=== PATIENT | female | born 1945 | race Caucasian/White ===

== ENCOUNTER → 2018-10-15 | Outpatient (CLI) | payer MEDICARE, BC, SELFPAY ==
[2018-10-15 10:28] LABS: Anion Gap 6 (5-15); BUN 16 mg/dL (7-18); BUN/Creat Ratio 20.2 RATIO (10-20); Calcium,Total 9.1 mg/dL (8.5-10.1); Chloride 110 mmol/L (98-107); Cholesterol 164 mg/dL (200); Creatinine, Serum 0.79 mg/dL (0.55-1.02); EST Glomerular Filtration Rate 76 mL/min (>60); Est Glom Filt Rate - Afr Amer 92 mL/min (>60); Glucose 97 mg/dL (74-106); High Density Lipoprotein 54 mg/dL; Potassium 4.2 mmol/L (3.5-5.1); Sodium Level 140 mmol/L (136-145); Thyroid Stim Hormone (TSH) 6.61 uIU/mL (0.358-3.74); Triglycerides 103 mg/dL; Very Low Density Lipoprotein 21 mg/dL (5-40)
== END | disposition home or self-care (01) ==
LOC: MFPLAB 08:46
PROVIDERS: Nurse Practitioner Family; Family Provider Family Medicine; PCP Family Medicine; Visit Provider Family Medicine
DX: Z00.00 Encounter for general adult medical examination without abnormal findings (principal); E03.9 Hypothyroidism, unspecified
CPT/HCPCS: 36415; 80048; 80061; 84443

== ENCOUNTER → 2018-11-02 | Outpatient (CLI) | payer MEDICARE, BC, SELFPAY ==
[2014-08-06 09:05] VITALS: BMI 28.2
--- NOTE | 2018-11-02 08:05 | BI_ITS ---
MAMMOGRAPHY - BILATERAL SCREENING REASON FOR EXAM: Female, 73 years old. Routine annual screening examination. PERTINENT HISTORY: Non-contributory. TECHNIQUE: Digital bilateral breast virgie (3D mammographic acquisition) in the CC and MLO projections. 2-D mediolateral oblique (MLO) and craniocaudad (CC) views of both breasts were obtained. CAD: Full Field Digital Mammography with Computer Added Detection was performed. COMPARISON: Comparison is made with prior outside examination dated August 22, 2015. FINDINGS: Breast Composition: There are scattered areas of fibroglandular density. There are no dominant masses or suspicious calcifications. No other significant abnormalities are identified. There has been no significant change since the prior study. BI/SCREEN MAMM (CAD) W/VIRGIE BILAT IMPRESSION: Stable bilateral screening mammogram. Yearly follow-up mammogram recommended. (A) ASSESSMENT CATEGORY: BIRADS Category 1: Negative. A letter regarding these results will be sent to the patient by the facility within 30 days. Approximately 10% of breast cancers are not detected by mammography. A normal mammogram should not delay biopsy of a clinically suspicious abnormality. [id number] Electronically Signed: Jose Carlos Bee, at 8:15 EDT , Service support ,
== END | disposition home or self-care (01) ==
LOC: OPBI 08:01
PROVIDERS: Family Provider Family Medicine; PCP Family Medicine; Referring Provider Nurse Practitioner Family; Visit Provider Nurse Practitioner Family
DX: Z12.31 Encounter for screening mammogram for malignant neoplasm of breast (principal)
CPT/HCPCS: 77063; 77067

== ENCOUNTER → 2018-12-23 09:59 | Outpatient (CLI) | payer MEDICARE, BC, SELFPAY ==
[2014-08-06 09:05] VITALS: BMI 28.2
[2018-12-23 13:02] LABS: Thyroid Stim Hormone (TSH) 2.54 uIU/mL (0.358-3.74)
== END ==
PROVIDERS: Family Provider Family Medicine; PCP Family Medicine; Referring Provider Family Medicine; Visit Provider Family Medicine
DX: E03.9 Hypothyroidism, unspecified (principal)
CPT/HCPCS: 36415; 84443

== ENCOUNTER → 2019-01-01 14:55 | Outpatient (CLI) | payer MEDICARE, BC, SELFPAY ==
[2014-08-06 09:05] VITALS: BMI 28.2
--- NOTE | 2019-01-01 | IMM_PTH ---
PATIENT: AISHA COTTER LOC: [facility] U#:[id number] AGE/SX: 79/F ROOM: RE01/01/[address]: Dr. Homero Mckenna MD : 1945 BED: DIS: SPEC #: [id number] RECD: 01/04/19 12:11 STATUS: YULIA CLAUDIA #: [id number] JENNIFER: 01/01/19 00:[address]: Homero Mckenna DEPT: IMMUNOHISTOCHEMISTRY RECD BY: Shyla Jaimes Tissues: C - Skin of arm Procedures: DESMIN (add) MART1 (add) Vimentin (add) Smooth Muscle Actin S-100 (add) PHYSICIAN & [place] [id number] SPECIMEN INFORMATION: Tissue Source: C - Right arm lesion, excision Clinical Info: Suspicious lesion Specimen Number: [id number] CPT code: 00658, 60867 x4 METHODOLOGY: Deparaffinized sections of prefer/formalin-fixed tissue or PAP/DQ stained slides are incubated with monoclonal/polyclonal antibodies/oligonucleotide probes. Localization is made via biotin free immunoperoxidase method. Appropriate controls are performed and reacted as expected. Results on target cell population are indicated in the following table: RESULTS: ANTIBODY / CLONE RESULT Block C Actin (1A4) negative Desmin (CE-R-11) negative Vimentin (V9) positive S-100 (4C4.9) positive MART-1 (A-103) negative These tests were developed and their performance characteristics determined by [facility]. They may not have been cleared or approved by the U.S. Food and Drug Administration. The FDA has determined that such clearance or approval is not necessary. The above immunohistochemical/dualISH markers are ordered and reviewed by the pathologist. INTERPRETATION: Right arm lesion, excision: Consistent with neurofibroma. LIVIA:libra 01/04/19
--- NOTE | 2019-01-01 11:50 | LES_PTH ---
PATIENT: AISHA COTTER LOC: [facility] U#:[id number] AGE/SX: 79/F ROOM: RE01/01/[address]: Dr. Homero Mckenna MD : 1945 BED: DIS: SPEC #: [id number] RECD: 01/01/19 14:02 STATUS: YULIA CLAUDIA #: [id number] JENNIFER: 01/01/19 11:[address]: Homero Mckenna DEPT: SURGICAL PATHOLOGY RECD BY: Shyla Jaimes Tissues: A - Skin of leg, NOS B - Skin of neck, NOS C - Skin of arm Procedures: Surgery Specimen Level IV HEADER OPERATION: Skin excision left leg; skin excision neck, front; skin excision of right arm PRE-OP DIAGNOSIS: Suspicious lesions TISSUE SUBMITTED: A - Left leg lesion, B - Neck lesion, C - Right arm lesion MICROSCOPIC DIAGNOSIS A. Left leg lesion, biopsy: Inflamed verrucal keratosis with mild actinic changes. B. Neck lesion, biopsy: Seborrheic keratosis. C. Right arm lesion, biopsy: Consistent with neurofibroma. Solar elastosis. See comment. SJ:libra 01/04/19 COMMENT C. Immunohistochemistry ([id number]) supports the above diagnosis. MICROSCOPIC DESCRIPTION Slides are reviewed. GROSS DESCRIPTION A - Received is one container labeled with the patient's name and not further designated. The specimen consists of a shave biopsy of neal-white skin measuring 0.7 x 0.7 x 0.2 cm. The specimen is inked and submitted entirely in one cassette. It will be sectioned at the time of embedding. B - Received is one container labeled with the patient's name and not further designated. The specimen consists of a shave biopsy of neal-white skin measuring 0.7 x 0.7 x 0.2 cm. The specimen is inked and submitted entirely in one cassette. It will be sectioned at the time of embedding. C - Received is one container labeled with the patient's name and not further designated. The specimen consists of a piece of neal-white skin ellipse measuring 1.2 x 0.7 cm and up to 0.5 cm in thickness. The specimen is inked, serially sectioned and submitted entirely in one cassette. / LIVIA:libra 01/01/19 TC:1 CPT: 39522 x3
== END ==
LOC: LAB 15:24 → LABSPEC 15:27
PROVIDERS: Family Provider Family Medicine; PCP Family Medicine; Referring Provider Family Medicine; Visit Provider Family Medicine
DX: L82.0 Inflamed seborrheic keratosis (principal); L57.8 Other skin changes due to chronic exposure to nonionizing radiation
CPT/HCPCS: 88305; 88341; 88342

== ENCOUNTER → 2019-04-12 09:53 | Outpatient (CLI) | payer MEDICARE, BC, SELFPAY ==
[2014-08-06 09:05] VITALS: BMI 28.2
[2019-04-12 13:02] LABS: Anion Gap 3 (5-15); BUN 14 mg/dL (7-18); BUN/Creat Ratio 18.1 RATIO (10-20); Calcium,Total 8.8 mg/dL (8.5-10.1); Chloride 111 mmol/L (98-107); Cholesterol 174 mg/dL (200); Creatinine, Serum 0.77 mg/dL (0.55-1.02); EST Glomerular Filtration Rate 78 mL/min (>60); Est Glom Filt Rate - Afr Amer 94 mL/min (>60); Free T3 2.4 pg/mL (2.18-3.98); Glucose 89 mg/dL (74-106); High Density Lipoprotein 48 mg/dL; Potassium 4.1 mmol/L (3.5-5.1); Sodium Level 140 mmol/L (136-145); T4 Total, Thyroxin 13.1 ug/dL (4.8-13.9); Thyroid Stim Hormone (TSH) 2.36 uIU/mL (0.358-3.74); Triglycerides 167 mg/dL; Very Low Density Lipoprotein 33 mg/dL (5-40)
== END ==
PROVIDERS: Family Provider Family Medicine; PCP Family Medicine; Visit Provider Family Medicine
DX: I10 Essential (primary) hypertension (principal); E03.9 Hypothyroidism, unspecified
CPT/HCPCS: 36415; 80048; 80061; 84436; 84443; 84481

== ENCOUNTER → 2019-05-27 09:59 | Outpatient (CLI) | payer MEDICARE, BC, SELFPAY ==
[2014-08-06 09:05] VITALS: BMI 28.2
[2019-05-27 13:03] LABS: Anion Gap 6 (5-15); BUN 10 mg/dL (7-18); BUN/Creat Ratio 12.2 RATIO (10-20); Calcium,Total 8.9 mg/dL (8.5-10.1); Chloride 109 mmol/L (98-107); Cholesterol 143 mg/dL (200); Creatinine, Serum 0.82 mg/dL (0.55-1.02); EST Glomerular Filtration Rate 73 mL/min (>60); Est Glom Filt Rate - Afr Amer 88 mL/min (>60); Free T3 2.2 pg/mL (2.18-3.98); Glucose 100 mg/dL (74-106); High Density Lipoprotein 50 mg/dL; Potassium 3.9 mmol/L (3.5-5.1); Sodium Level 139 mmol/L (136-145); T4 Total, Thyroxin 12.8 ug/dL (4.8-13.9); Thyroid Stim Hormone (TSH) 1.82 uIU/mL (0.358-3.74); Triglycerides 104 mg/dL; Very Low Density Lipoprotein 21 mg/dL (5-40)
== END ==
PROVIDERS: PCP Family Medicine; Referring Provider Family Medicine; Visit Provider Family Medicine
DX: E03.9 Hypothyroidism, unspecified (principal); I10 Essential (primary) hypertension
CPT/HCPCS: 36415; 80048; 80061; 84436; 84443; 84481

== ENCOUNTER → 2020-05-25 08:35 | Outpatient (CLI) | payer MEDICARE, BC, SELFPAY ==
[2014-08-06 09:05] VITALS: BMI 28.2
[2020-05-25 10:47] LABS: Anion Gap 5 (5-15); BUN 12 mg/dL (7-18); Chloride 109 mmol/L (98-107); Cholesterol 179 mg/dL (200); Creatinine, Serum 0.92 mg/dL (0.55-1.02); EST Glomerular Filtration Rate 63 mL/min (>60); Est Glom Filt Rate - Afr Amer 77 mL/min (>60); Free T3 1.4 pg/mL (2.18-3.98); Glucose 93 mg/dL (74-106); High Density Lipoprotein 59 mg/dL; Sodium Level 140 mmol/L (136-145); T4 Free Direct 0.44 ng/dL (0.76-1.46); Triglycerides 136 mg/dL; Very Low Density Lipoprotein 27 mg/dL (5-40)
== END ==
PROVIDERS: PCP Family Medicine; Referring Provider Family Medicine; Visit Provider Family Medicine
DX: I10 Essential (primary) hypertension (principal); E03.9 Hypothyroidism, unspecified
CPT/HCPCS: 36415; 80048; 80061; 84439; 84443; 84481

== ENCOUNTER 2020-06-13 08:55 | Outpatient (RCR) | payer MEDICARE, SELFPAY ==
[2014-08-06 09:05] VITALS: BMI 28.2
[2020-06-13] MEDS: COVID-19 VACC, MRNA(PFIZER)/PF 30 MCG/0.3 ML SYRINGE IM (07:54)
[2020-07-04] MEDS: COVID-19 VACC, MRNA(PFIZER)/PF 30 MCG/0.3 ML SYRINGE IM (07:47)
== END 2020-09-12 23:59 ==
LOC: IMMUN 08:55
PROVIDERS: PCP Family Medicine; Visit Provider Family Medicine
DX: Z23 Encounter for immunization (principal)
CPT/HCPCS: 0001A; 0002A; 91300

== ENCOUNTER → 2020-09-22 13:37 | Outpatient (CLI) | payer MEDICARE, BC, SELFPAY ==
--- NOTE | 2020-09-22 14:18 | ART_ITS ---
Reason For Study: CLAUDICATION Procedure A bilateral lower extremity continuous wave Doppler with analog waveform analysis,segmental pressures,and ankle brachial indexes without exercise. Left Segmental Pressures Left brachial= 146mmHg. Left posterior tibial artery = 176mmHg. Left dorsalis pedis artery = 176mmHg. Left digit = 121 mmHg. Right Segmental Pressures Right brachial= 151mmHg. Right thigh = 168mmHg. Right calf = 94mmHg. Right posterior tibial artery = 101mmHg. Right dorsalis pedis artery = 94mmHg. Right digit = 71 mmHg. Indices The right ankle brachial index by the dorsalis pedis is .62. The right ankle brachial index by the posterior tibial artery is .67. The right digital-brachial index is .47. The left ankle brachial index by the dorsalis pedis is 1.17. The left ankle brachial index by the posterior tibial artery is 1.17. The left digital-brachial index is .8. VL/Lower Ext Art Exam w/o Exercis Interpretation Summary Abnormal right lower extremity ankle-brachial indices at 0.62 for the dorsalis pedis and 0.67 mm for the posterior tibialis consistent with moderately severe disease Normal left lower extremity resting ankle-brachial index for the dorsalis pedis of 1.17 and of the posterior tibial 1.17. Right digital brachial index is abnormal at 0.47. The left digital brachial ind ex is normal at 0.8 Findings are suggestive of possible superficial femoral artery occlusion on the right Ordering Physician: Vero Daniels Referring Physician: KARISHMA COULTER Performed By: LISANDRO MENDOZA RDCS
== END ==
PROVIDERS: PCP Family Medicine; Referring Provider Family Medicine; Visit Provider Family Medicine
DX: I73.9 Peripheral vascular disease, unspecified (principal)
CPT/HCPCS: 93923